=== PATIENT | male | born 1940 | race Caucasian/White ===

== ENCOUNTER 2021-11-25 13:38 | Inpatient (IN) | payer OTHER ==
[2021-11-25 14:15] LABS: Absolute Lymphocytes (CBC) 1.3 K/uL (0.7-4.9); Hematocrit 40.9 % (39.6-49.0); Lymphocytes % 22.8 % (15.3-44.8); MPV 9.2 fL (7.6-11.3); RBC Red Blood Cell Count 4.51 M/uL (4.33-5.43)
--- NOTE | 2021-11-25 14:52 | EDPHYS ---
Physician Documentation [facility] Name: Augustine Shin Age: 81 yrs Sex: Male : 1940 Arrival Date: 11/25/2021 Time: 13:41 Bed 5 Private MD: ED Physician Lan Ballard HPI: 11/25 14:48 This 81 yrs old Male presents to ER via EMS with complaints of Chest Pain. rn 14:48 The patient or guardian reports chest pain that is located primarily in the substernal rn area. Onset: yesterday. The pain does not radiate. Associated signs and symptoms: Pertinent positives: diaphoresis, shortness of breath, Pertinent negatives: cough, nausea, syncope, vomiting. The chest pain is described as a heaviness. Duration: The patient or guardian reports multiple episodes, that are intermittent. Modifying factors: The symptoms are alleviated by nothing. the symptoms are aggravated by nothing. Severity of pain: At its worst the pain was moderate in the emergency department the pain has resolved. The patient has not experienced similar symptoms in the past. The patient has been recently seen by a physician:. Sent from clinic for chest pain, started yesterday, no trauma, no fever, no cough. Reports assoc with diaphoresis and sob, lasted only minutes, currently no pain or sob.. 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 Adult Immunizations up to date. - Social history:: Smoking status: Patient/guardian denies using tobacco, the patient reports quitting approximately 42 years ago. - Family history:: not pertinent. ROS: 14:48 Constitutional: Negative for fever, chills, and weight loss, Eyes: Negative for injury, rn pain, redness, and discharge, Neck: Negative for injury, pain, and swelling, Cardiovascular: Negative for palpitations, and edema, Respiratory: Negative for cough, wheezing, and pleuritic chest pain, Abdomen/GI: Negative for abdominal pain, nausea, vomiting, diarrhea, and constipation, Back: Negative for injury and pain, MS/Extremity: Negative for injury and deformity, Skin: Negative for injury, rash, and discoloration, Neuro: Negative for headache, weakness, numbness, tingling, and seizure. Exam: 14:48 Constitutional: This is a well developed, well nourished patient who is awake, alert, rn and in no acute distress. Head/Face: Normocephalic, atraumatic. Eyes: Periorbital areas with no swelling, redness, or edema. Cardiovascular: Regular rate and rhythm. No pulse deficits. Respiratory: No increased work of breathing, no retractions or nasal flaring. Abdomen/GI: Soft, non-tender Skin: Warm, dry MS/ Extremity: Pulses equal, no cyanosis. Neuro: Awake and alert, GCS 15 Vital Signs: 13:25 BP 195 / 89; Pulse 72; Resp 16 S; Temp 98.6(O); Pulse Ox 98% on R/A; Weight 67.4 kg; jg9 Height 5 ft. 9 in. (175.26 cm) (R); Pain 0/10; 13:30 BP 195 / 89; Pulse 54; Resp 19 S; Pulse Ox 98% on R/A; jg9 14:30 BP 198 / 85; Pulse 51; Resp 14 S; Pulse Ox 100% on R/A; jg9 15:00 BP 174 / 72; Pulse 58; Resp 18 S; Pulse Ox 98% on R/A; jg9 15:30 BP 172 / 84; Pulse 58; Resp 17; Pulse Ox 99% on R/A; jg9 18:00 BP 184 / 85; Pulse 55; Resp 14; Pulse Ox 98% on R/A; Pain 0/10; jg9 13:25 Body Mass Index 21.94 (67.40 kg, 175.26 cm) 9 MDM: 13:52 Patient medically screened. rn 14:51 Differential diagnosis: acute myocardial infarction, acute pericarditis, coronary rn artery disease costochondritis, esophagitis, gastritis, gastroesophageal reflux disease (GERD), pneumothorax. Data reviewed: vital signs, nurses notes, lab test result(s), EKG, and as a result, I will admit patient. Counseling: I had a detailed discussion with the patient and/or guardian regarding: the historical points, exam findings, and any diagnostic results supporting the discharge/admit diagnosis, lab results, radiology results, the need for further work-up and treatment in the hospital. Medical screen evaluation completed. [facility]. Admission orders: after a detailed discussion of the patient's condition and case, the admit orders are written by me. 11/25 14:01 Order name: Basic Metabolic Panel; Complete Time: 16: rn 11/25 14:01 Order name: CBC with Diff; Complete Time: 15: rn 11/25 14:01 Order name: NT PRO-BNP; Complete Time: 16: rn 11/25 14:01 Order name: Troponin HS; Complete Time: 16: rn 11/25 14:01 Order name: XRAY Chest (1 view); Complete Time: 15:11/25 14:15 Order name: COVID-19 SARS RT PCR (Document "Date of Onset" if Symptomatic); Complete bd Time: 15:11/25 14:01 Order name: EKG; Complete Time: 14:02 11/25 14:01 Order name: Cardiac monitoring; Complete Time: 15: rn 11/25 14:01 Order name: EKG - Nurse/Tech; Complete Time: 15: rn 11/25 14:01 Order name: IV Saline Lock; Complete Time: 15: rn 11/25 14:01 Order name: Labs collected and sent; Complete Time: 15: rn 11/25 14:01 Order name: O2 Per Protocol; Complete Time: 15: rn 11/25 14:01 Order name: O2 Sat Monitoring; Complete Time: 15: rn 11/25 14:19 Order name: Labs - recollect needed: recollect green top; Complete Time: 15:32 bd Administered Medications: 15:37 Drug: Aspirin 325 mg Route: PO; ap3 15:39 Follow up: Response: No adverse reaction jg9 Disposition Summary: 11/25/21 14:51 Hospitalization Ordered Hospitalization Status: Observation rn Provider: Darrin Key rn Location: Telemetry/MedSurg (observation) rn Condition: Stable rn Problem: new rn Symptoms: have improved rn Bed/Room Type: Standard rn Room Assignment: 224(11/25/21 17:54) tyron Diagnosis - Chest pain, unspecified rn Forms: - Medication Reconciliation Form rn - SBAR form rn Signatures: Dispatcher [employer] Kaitlin Cruz Diana, RN RN Lan Sanches MD MD rn Prokisch, Amanda RN RN ap3 Carmita Ventura RN RN jg9 Corrections: (The following items were deleted from the chart) 17:54 14:51 andre ackerman
--- NOTE | 2021-11-25 14:52 | ER ---
Nurse's Notes [facility] Name: Augustine Shin Age: 81 yrs Sex: Male : 1940 Arrival Date: 11/25/2021 Time: 13:41 Bed 5 Private MD: Diagnosis: Chest pain, unspecified Presentation: 11/25 13:25 Chief complaint: EMS states: [facility]/o intermittent c/p since jg9 yesterday, currently pain free but has been having mid-sternal pain radiating to the epigastric area, Hx of AAA repair in 2020. Patient awake, alert, oriented and in no obvious distress. Coronavirus screen: Vaccine status: Patient reports receiving the 2nd dose of the covid vaccine. [place] 08/24/21 and 09/22/21. Ebola Screen: Patient negative for fever greater than or equal to 101.5 degrees Fahrenheit, and additional compatible Ebola Virus Disease symptoms Patient denies exposure to infectious person. Patient denies travel to an Ebola-affected area in the 21 days before illness onset. Initial Sepsis Screen: Does the patient meet any 2 criteria? No. Patient's initial sepsis screen is negative. Does the patient have a suspected source of infection? No. Patient's initial sepsis screen is negative. Initial Sepsis Screen: Does the patient meet any 2 criteria?. Risk Assessment: Do you want to hurt yourself or someone else? Patient reports no desire to harm self or others. Onset of symptoms was November 24, 2021. 13:25 Method Of Arrival: EMS: [facility] 13:25 Acuity: TYLER 3 jg9 Triage Assessment: 13:25 General: Appears in no apparent distress. Behavior is calm. Pain: Denies pain. jg9 Cardiovascular: Rhythm is sinus rhythm. 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 Adult Immunizations up to date. - Social history:: Smoking status: Patient/guardian denies using tobacco, the patient reports quitting approximately 42 years ago. - Family history:: not pertinent. Screenin:49 Abuse screen: Denies threats or abuse. Nutritional screening: No deficits noted. ap3 Tuberculosis screening: No symptoms or risk factors identified. 13:53 Fall Risk None identified. jg9 Assessment: 13:00 Pain: Pain began 1 day ago. jg9 13:00 Pain: Pain does not radiate. jg9 15:38 Reassessment: No changes from previously documented assessment. Patient is alert, jg9 oriented x 3, equal unlabored respirations, skin warm/dry/pink. Pain: Denies pain. Vital Signs: 13:25 BP 195 / 89; Pulse 72; Resp 16 S; Temp 98.6(O); Pulse Ox 98% on R/A; Weight 67.4 kg; jg9 Height 5 ft. 9 in. (175.26 cm) (R); Pain 0/10; 13:30 BP 195 / 89; Pulse 54; Resp 19 S; Pulse Ox 98% on R/A; jg9 14:30 BP 198 / 85; Pulse 51; Resp 14 S; Pulse Ox 100% on R/A; jg9 15:00 BP 174 / 72; Pulse 58; Resp 18 S; Pulse Ox 98% on R/A; jg9 15:30 BP 172 / 84; Pulse 58; Resp 17; Pulse Ox 99% on R/A; jg9 18:00 BP 184 / 85; Pulse 55; Resp 14; Pulse Ox 98% on R/A; Pain 0/10; jg9 13:25 Body Mass Index 21.94 (67.40 kg, 175.26 cm) jg9 ED Course: 13:41 Patient arrived in ED. jg9 13:42 Carmita Ventura, RN is Primary Nurse. jg9 13:46 Triage completed. jg9 13:49 Arm band placed on right wrist. EKG completed in triage. Results shown to MD. ap3 13:49 Patient has correct armband on for positive identification. Bed in low position. Call ap3 light in reach. Side rails up X 1. tankage grinder on. Pulse ox on. NIBP on. Door closed. Noise minimized. 13:49 Patient maintains SpO2 saturation greater than 95% on room air. ap3 13:52 Lan Ballard MD is Attending Physician. rn 14:50 XRAY Chest (1 view) In Process Unspecified. EDMS 14:51 Darrin Key is Hospitalizing Provider. rn 15:39 No apparent distress. Resting quietly. jg9 18:18 No provider procedures requiring assistance completed. jg9 18:19 Patient admitted, IV remains in place. jg9 Administered Medications: 15:37 Drug: Aspirin 325 mg Route: PO; ap3 15:39 Follow up: Response: No adverse reaction jg9 Outcome: 14:51 Decision to Hospitalize by Provider. rn 18:19 Condition: stable jg9 18:19 Admitted to Med/surg accompanied by nurse, via stretcher, via wheelchair, room 224, jg9 Report called to Tigist Anne RN 18:20 Patient left the ED. jg9 Signatures: Dispatcher [employer] EDIA Lan Ballard MD MD rn Prokisch, Amanda, RN RN ap3 Carmita Ventura RN RN jg9 Corrections: (The following items were deleted from the chart) 13:52 13:25 Cardiovascular: Rhythm is sinus bradycardia jg9 jg9
--- NOTE | 2021-11-25 14:57 | RAD REPORT ---
EXAM DESCRIPTION: RAD - Chest Single View - 11/25/2021 2:48 pm CLINICAL HISTORY: CHEST PAIN TECHNIQUE: AP portable chest image was obtained 11/25/2021 2:48 pm . FINDINGS: Lungs are clear. Heart and vasculature are normal. No measurable pleural effusion and no p neumothorax. No acute bony abnormality seen. No acute aortic findings suspected. IMPRESSION: No acute cardiopulmonary process.
[2021-11-25] MEDS ORDERED: ASPIRIN 325 MG TAB ONE (15:38)
[2021-11-25 16:13] LABS: Potassium 3.5 mmol/L (3.5-5.1); Troponin High Sensitivity 9.8 pg/mL (<58.9)
--- NOTE | 2021-11-25 16:47 | P.HP ---
Certification for Inpatient Patient admitted to: Observation With expected LOS: <2 Midnights Practitioner: I am a practitioner with admitting privileges, knowledge of patient current condition, hospital course, and medical plan of care. Services: Services provided to patient in accordance with Admission requirements found in Title 42 Section 412.3 of the Code of Federal Regulations Patient History Date of Service: 11/25/21 Reason for admission: Chest pain History of Present Illness: 81-year-old gentleman with a history of diabetes mellitus type 2, history of peripheral vascular disease, aortic aneurysm/dissection status post resection and grafting presented to the emergency department with a complaint of chest pain of onset last night, intermittent in nature, located in anterior chest, each episode lasting briefly, associated with diaphoresis, no nausea, moderate intensity. Initial work-up in the ED with troponin is negative. EKG demonstrates a sinus bradycardia, no significant ischemic changes. Checks x-ray shows no acute disease. Patient with significant CAD risk factors including PVD. He is hospitalized for chest pain rule out. - Past Medical/Surgical History -: Hypertension -: DM type II -: Peripheral vascular disease -: Aortic aneurysm status post repair -: Aortic aneurysm/dissection repair - Family History Mother -: Diabetes - Social History Smoking Status: Former smoker Alcohol use: No CD- Drugs: No Place of Residence: Home Review of Systems Other: Patient denied any cough, denied any abdominal pain, no nausea or vomiting. Except as documented, all other systems reviewed and negative. Physical Examination - Physical Exam General: Alert, In no apparent distress, Oriented x3 HEENT: PERRLA, Mucous membr. moist/pink, EOMI, Sclerae nonicteric Neck: Supple, JVD not distended Respiratory: Clear to auscultation bilaterally, Normal air movement Cardiovascular: No edema, Regular rate/rhythm, Normal S1 S2, No murmurs Capillary refill: <2 Seconds Gastrointestinal: Normal bowel sounds, Soft and benign, Non-distended, No tenderness Musculoskeletal: No swelling, No tenderness Integumentary: No rashes, No erythema, No cyanosis Neurological: Normal speech, Normal strength at 5/5 x4 extr, Cranial nerves 3-12 intact Lymphatics: No axilla or inguinal lymphadenopathy - Studies Laboratory Data (last 24 hrs) 11/25/21 15:32: Sodium 144, Potassium 3.5, BUN 21 H, Creatinine 0.93, Glucose 98 11/25/21 14:00: WBC 5.60, Hgb 13.7, Hct 40.9, Plt Count 205 Assessment and Plan - Problems (Diagnosis) (1) Chest pain Current Visit: Yes Status: Acute (2) Hypertension Current Visit: Yes Status: Acute (3) Peripheral vascular disease Current Visit: Yes Status: Acute (4) DM type 2 (diabetes mellitus, type 2) Current Visit: Yes Status: Acute (5) Sinus bradycardia Current Visit: Yes Status: Acute - Plan Patient with significant CAD risk factors presenting with chest pain. Place patient under observation. Initial troponin is negative. Continue to trend troponin x3. Obtain echocardiogram. Cardiology consult Stress test if troponin trend negative. Aspirin and Plavix Patient with sinus bradycardia. He would not tolerate beta-edenilson. Continue home antihypertensives. - Advance Directives Does patient have a Living Will: No Does patient have a Durable POA for Healthcare: No
[2021-11-25 18:33] VITALS: BMI 21.3
[2021-11-25] MEDS ORDERED: MORPHINE 2 MG/ML SYR IV PRN (18:50)
[2021-11-25] MEDS ORDERED: NITROGLYCERIN 0.4 MG/TAB SL PRN (18:50)
[2021-11-25] MEDS ORDERED: ACETAMINOPHEN 500 MG TAB PO PRN (18:50)
[2021-11-25 20:32] LABS: Troponin High Sensitivity 13.1 pg/mL (<58.9)
[2021-11-25] MEDS: INSULIN -REGULAR HUMAN 50 UNIT/0.5 ML ML SQ SCH (22:25)
[2021-11-25] MEDS: METFORMIN HCL 500 MG TAB PO SCH (22:54)
[2021-11-25] MEDS: ATORVASTATIN 80 MG TAB PO SCH (22:54)
[2021-11-25] MEDS: GABAPENTIN 400 MG CAP PO SCH (22:54)
[2021-11-26 05:45] LABS: Absolute Lymphocytes (CBC) 1.1 K/uL (0.7-4.9); Hematocrit 39.5 % (39.6-49.0); Lymphocytes % 20.6 % (15.3-44.8); MPV 8.6 fL (7.6-11.3); RBC Red Blood Cell Count 4.34 M/uL (4.33-5.43)
[2021-11-26 06:00] LABS: Potassium 4.1 mmol/L (3.5-5.1)
[2021-11-26] MEDS: INSULIN -REGULAR HUMAN 50 UNIT/0.5 ML ML SQ SCH ×4 (07:30→21:06)
--- NOTE | 2021-11-26 07:45 | EKG ---
Test Date: 2021-11-25 Test Time: 13:27:18 Production Line Technician: ALP MEASUREMENT RESULTS: Intervals: Rate: 48 CT: 166 QRSD: 84 QT: 404 QTc: 360 Upson: P: 66 CT: 166 QRS: 64 T: 77 INTERPRETIVE STATEMENTS: Sinus bradycardia Septal infarct, age undetermined Abnormal ECG No previous ECG available for comparison Electronically Signed On 11-26-21 07:41:34 CDT by Jag Alonzo
[2021-11-26] MEDS: ASCORBIC ACID 100 MG PO SCH (09:00)
[2021-11-26] MEDS: CLOPIDOGREL 75 MG TABLET PO SCH (09:19)
[2021-11-26] MEDS: LOSARTAN POTASSIUM 50 MG TABLET PO SCH (09:19)
[2021-11-26] MEDS: METFORMIN HCL 500 MG TAB PO SCH (09:19)
[2021-11-26] MEDS: ASPIRIN EC 81 MG TAB PO SCH (09:20)
[2021-11-26] MEDS: PANTOPRAZOLE 40MG TABLET PO SCH (09:20)
[2021-11-26] MEDS: ENOXAPARIN 40 MG/0.4 ML SQ SCH (09:20)
[2021-11-26] MEDS: GABAPENTIN 400 MG CAP PO SCH ×3 (09:20→21:07)
--- NOTE | 2021-11-26 10:31 | CON ---
Date of Consultation: 11/26/2021 Reason For Consultation: Chest pain. History Of Present Illness: Mr. Shin is an 81-year-old male, has had a history of abdominal aortic aneurysm, status post repair at the [facility]. He has had a history of peripheral arterial disease , hypertension, diabetes, and dyslipidemia. Has had negative workups in the past, but he does not re member when. He does not have a regular physician, primary care, or cardiology. He comes in with mancuso bsternal chest pain, diffuse, anterior, worse with breathing. No nausea, vomiting, diaphoresis, PND, orthopnea, pedal edema, palpitations, syncope. Normal troponin, normal BNP, normal EKG, normal x-ra y. Glucose of 215, creatinine 1.34. He is symptom free now. Echocardiogram is pending. Past Medical History: As stated above. Allergies: HE IS ALLERGIC TO ADHESIVES, SULFA, IODINE, AND BACITRACIN. Review of Systems: Negative. Social History: Negative. Family History: Noncontributory. Medications: Include aspirin, Lipitor, Neurontin, insulin, losartan, metformin, omeprazole, and a nc dicine called alogliptin. Physical Examination: Vital Signs: Stable, afebrile. General: No acute distress. HEENT: Negative. Neck: Supple. No bruit. Chest: Clear. Cardiac: Revealed a regular rhythm and rate. No murmurs, gallops, or rubs. Abdomen: Benign. Extremities: Revealed no clubbing, cyanosis, or edema. Diagnostic Data: As stated earlier. Impression And Plan: This is a patient with many risk factors for heart disease including peripheral arterial disease, abdominal aortic aneurysm, hypertension, diabetes, and dyslipidemia. He ruled out for a myocardial infarction. EKG, troponin, and x-rays are unremarkable. Echocardiogram is pending . I think he needs to have the Lexiscan before he goes home. I will discuss the case further with Ruth Ann Key. His blood pressure and dyslipidemia are well controlled. His diabetes is poorly controll ed. His peripheral arterial disease and abdominal aortic aneurysm are stable. He needs to have thes e followed up in the near future as well. NB/MODL Voice ID: [id number] Report ID: [id number]
--- NOTE | 2021-11-26 14:01 | P.PN ---
Subjective Date of Service: 11/26/21 Chief Complaint: Chest pain Patient has no new complaint. He denies any chest pain today. Physical Examination - Vital Signs Temperature: 97.7 F Blood Pressure: 179/73 Pulse: 57 Respirations: 20 Pulse Ox (%): 97 - Physical Exam General: Alert, In no apparent distress, Other (Frail-appearing) HEENT: Mucous membr. moist/pink Neck: Supple, JVD not distended Respiratory: Clear to auscultation bilaterally, Normal air movement Cardiovascular: No edema, Regular rate/rhythm, Normal S1 S2, No murmurs Gastrointestinal: Normal bowel sounds, Soft and benign, Non-distended, No tenderness Musculoskeletal: No swelling, No tenderness Integumentary: No rashes, No cyanosis Neurological: Normal strength at 5/5 x4 extr - Studies Laboratory Data (last 24 hrs) 11/26/21 05:24: Sodium 142, Potassium 4.1, BUN 27 H, Creatinine 1.34 H, Glucose 123 H 11/26/21 05:24: WBC 5.10, Hgb 13.3 L, Hct 39.5 L, Plt Count 178 11/25/21 19:07: Triglycerides 67, Cholesterol 163, HDL Cholesterol 46, Cholesterol/HDL Ratio 3.54 11/25/21 15:32: Sodium 144, Potassium 3.5, BUN 21 H, Creatinine 0.93, Glucose 98 11/25/21 14:00: WBC 5.60, Hgb 13.7, Hct 40.9, Plt Count 205 Assessment And Plan - Current Problems (Diagnosis) (1) Chest pain Current Visit: Yes Status: Acute (2) Hypertension Current Visit: Yes Status: Acute (3) Peripheral vascular disease Current Visit: Yes Status: Acute (4) DM type 2 (diabetes mellitus, type 2) Current Visit: Yes Status: Acute (5) Sinus bradycardia Current Visit: Yes Status: Acute - Plan Patient with significant CAD risk factors presenting with chest pain. Troponin trended negative. Echocardiogram result is pending Cardiology input appreciated. Dr. Tracy recommend nuclear stress test Nuclear stress test ordered for tomorrow Continue aspirin and Plavix. Start Lipitor. Patient with sinus bradycardia. He would not tolerate beta-edenilson. Continue home antihypertensives. Insulin sliding scale for glucose management. Hold Metformin.
[2021-11-26] MEDS: ATORVASTATIN 80 MG TAB PO SCH (21:06)
[2021-11-27] MEDS ORDERED: REGADENOSON 0.4 MG/5 ML SYR IV ONE (07:12)
[2021-11-27] MEDS: INSULIN -REGULAR HUMAN 50 UNIT/0.5 ML ML SQ SCH ×2 (07:30→12:44)
--- NOTE | 2021-11-27 07:34 | ECHO ---
HEIGHT: 5 ft 9 in WEIGHT: 144 lb 8 oz DATE OF STUDY: 11/26/[address]: kelly nesbitt 2-DIMENSIONAL: YES M.MODE: YES DOPPLER: YES COLOR FLOW: YES TDS: NO PORTABLE: NO DEFINITY: NO BUBBLE STUDY: NO DIAGNOSIS: CHEST PAIN CARDIAC HISTORY: CATHERIZATION: NO SURGERY: NO PROSTHETIC VALVE: NO PACEMAKER: NO MEASUREMENTS (cm) DIASTOLIC (NORMALS) SYSTOLIC (NORMALS) IVSd 0.9 (0.6-1.2) LA Diam 2.2 (1.9-4.0) LVEF 68% LVIDd 3.0 (3.5-5.7) LVIDs 1.9 (2.0-3.5) %FS 37% LVPWd 1.0 (0.6-1.2) Ao Diam 2.1 (2.0-3.7) 2 DIMENSIONAL ASSESSMENT: RIGHT ATRIUM: NORMAL LEFT ATRIUM: NORMAL RIGHT VENTRICLE: NORMAL LEFT VENTRICLE: NORMAL TRICUSPID VALVE: NORMAL MITRAL VALVE: PULMONIC VALVE: NORMAL AORTIC VALVE: NORMAL PERICARDIAL EFFUSION: NONE AORTIC ROOT: NORMAL LEFT VENTRICULAR WALL MOTION: NORMAL DOPPLER/COLOR FLOW: MILD MITRAL REGURGITATION. COMMENTS: NORMAL LEFT VENTRICULAR EJECTION FRACTION 60-65%. NORMAL WALL MOTION. MILD MITRAL REGURGITATION. MILD DIASTOLIC DYSFUNCTION. TECHNOLOGIST: Bridget GARNER
[2021-11-27] MEDS: ASCORBIC ACID 100 MG PO SCH (09:00)
--- NOTE | 2021-11-27 10:00 | RAD REPORT ---
EXAM DESCRIPTION: NM - Rest Stress Cardiac Imaging - 11/27/2021 9:45 am CLINICAL HISTORY: Chest pain. COMPARISON: None. TECHNIQUE: The patient was administered 10.5 mCi of Tc 99m Sestamibi prior to resting SPECT imaging of the heart. The patient was then administered 31.6 mCi of Tc 99m Sestamibi following exercise or ph armacologic stress. Multiplanar SPECT images were reviewed. FINDINGS: A moderate area of diminished radiotracer activity involves the inferior left ventricular myocardium on rest and stress sequences. The left ventricular ejection fraction equals 71% IMPRESSION: Moderate apparent fixed perfusion defect involving the inferior left ventricular myocard ium could either be secondary to attenuation from the diaphragm or an infarction. There is no evidence of stress-induced ischemia
[2021-11-27] MEDS: LOSARTAN POTASSIUM 50 MG TABLET PO SCH (10:41)
[2021-11-27] MEDS: ASPIRIN EC 81 MG TAB PO SCH (10:42)
[2021-11-27] MEDS: GABAPENTIN 400 MG CAP PO SCH ×2 (10:42→13:58)
[2021-11-27] MEDS: ENOXAPARIN 40 MG/0.4 ML SQ SCH (10:43)
[2021-11-27] MEDS: CLOPIDOGREL 75 MG TABLET PO SCH (10:43)
[2021-11-27] MEDS: PANTOPRAZOLE 40MG TABLET PO SCH (10:43)
[2021-11-27 10:49] VITALS: BP 175/81; TEMP 97
--- NOTE | 2021-11-27 11:35 | TREADPHA ---
DX: CHEST PAIN Date of Study: 11/27/2021 Ht: 5' 9 " Wt: 144 lb 8 oz Consulting Physician: TIMMY MEDICATIONS: ASPIRIN, LIPITOR, PLAVIX, LOVENOX, NEURONTIN, NOVOLIN-R, COZAAR HISTORY: 81 YEAR OLD MALE WITH COMPLAINTS OF CHEST TIGHTNESS AND HYPERTENSION. HISTORY OF DIABETES MELLITUS, HYPERTENSION, HIGH CHOLESTEROL AND PROSTATE CANCER. PHYSICIAL EXAMINATION: RESTING B.P.: 155/83 RESTING H.R.: 56 RESTING EKG: NORMAL SINUS RHYTHM, WITHIN NORMAL LIMITS. PROTOCOL: LEXISCAN EXERCISE TIME: 3:30 B.P. AT PEAK STRESS: 144/51 IMPRESSION: LEXISCAN INJECTED. CARDIOLITE INJECTED PER PROTOCOL. SEE NUCLEAR MEDICINE REPORT. NO CHEST PAIN. NO VENTRICULAR OR SUPRAVENTRICULAR TACHYCARDIA NOTED. OCCASIONAL PREMATURE VENTRICULAR COMPLEXES NOTED. PATIENT COMPLAINTS OF STOMACH PAIN AND BRIEF CHEST TIGHTNESS. NO EKG CHANGES WITH LEXISCAN.
[2021-11-27 12:02] VITALS: O2SAT 98
--- NOTE | 2021-11-27 13:04 | P.DS ---
Admission Date: 11/26/21 Discharge Date: 11/27/21 Disposition: ROUTINE DISCHARGE Discharge Condition: FAIR Reason for Admission: Chest pain - Problems (1) Chest pain Current Visit: Yes Status: Acute (2) Hypertension Current Visit: Yes Status: Acute (3) Peripheral vascular disease Current Visit: Yes Status: Acute (4) DM type 2 (diabetes mellitus, type 2) Current Visit: Yes Status: Acute (5) Sinus bradycardia Current Visit: Yes Status: Acute Brief History of Present Illness: 81-year-old gentleman with a history of diabetes mellitus type 2, history of peripheral vascular disease, aortic aneurysm/dissection status post resection and grafting presented to the emergency department with a complaint of chest pain of onset last night, intermittent in nature, located in anterior chest, each episode lasting briefly, associated with diaphoresis, no nausea, moderate intensity. Initial work-up in the ED with troponin is negative. EKG demonstrates a sinus bradycardia, no significant ischemic changes. Checks x-ray shows no acute disease. Patient with significant CAD risk factors including PVD. He is hospitalized for chest pain rule out. Hospital Course: Patient placed on observation on the medical floor. Troponin trended negative. Patient seen and evaluated by cardiology recommended nuclear stress test. Nuclear stress test showed no stress-induced ischemia. ACS has been ruled out, patient has been asymptomatic and deemed stable for discharge. He is discharged to continue aspirin and Lipitor. His blood pressure was elevated during the hospital stay. Patient is already on losartan 100 mg daily. Added Norvasc 5 mg daily for better blood pressure control. Vital Signs/Physical Exam: Temp Pulse Resp BP Pulse Ox 97.0 F 59 18 175/81 H 96 11/27/21 08:00 11/27/21 08:00 11/27/21 08:00 11/27/21 08:00 11/27/21 08:00 General: Alert, In no apparent distress, Oriented x3 HEENT: Mucous membr. moist/pink Neck: JVD not distended Respiratory: Clear to auscultation bilaterally, Normal air movement Cardiovascular: No edema, Regular rate/rhythm, Normal S1 S2 Gastrointestinal: Soft and benign, Non-distended, No tenderness Musculoskeletal: No swelling Integumentary: No rashes Neurological: Normal strength at 5/5 x4 extr Laboratory Data at Discharge: WBC 5.10 K/uL (4.3-10.9) 11/26/21 05:24 Hgb 13.3 g/dL (13.6-17.9) L 11/26/21 05:24 Hct 39.5 % (39.6-49.0) L 11/26/21 05:24 Plt Count 178 K/uL (152-406) 11/26/21 05:24 Sodium 142 mmol/L (136-145) 11/26/21 05:24 Potassium 4.1 mmol/L (3.5-5.1) 11/26/21 05:24 BUN 27 mg/dL (7-18) H 11/26/21 05:24 Creatinine 1.34 mg/dL (0.55-1.3) H 11/26/21 05:24 Glucose 123 mg/dL (74-106) H 11/26/21 05:24 Triglycerides 67 mg/dL (<150) 11/25/21 19:07 Cholesterol 163 mg/dL (<200) 11/25/21 19:07 HDL Cholesterol 46 mg/dL (40-60) 11/25/21 19:07 Cholesterol/HDL Ratio 3.54 11/25/21 19:07 Home Medications: Alogliptin Benzoate [Alogliptin] 6.25 mg PO DAILY 11/25/21 Ascorbic Acid [Vitamin C] 100 mg PO DAILY 11/25/21 Aspirin [Aspirin EC] 81 mg PO BEDTIME 11/25/21 Atorvastatin Calcium [Lipitor] 80 mg PO BEDTIME 11/25/21 Gabapentin 400 mg PO TID 11/25/21 Insulin NPH Human Isophane [Novolin N] 13 units SQ BEDTIME 11/25/21 Losartan Potassium 100 mg PO DAILY 11/25/21 Metformin HCl 1,000 mg PO BID 11/25/21 Omeprazole 20 mg PO DAILY 11/25/21 Amlodipine [Norvasc*] 5 mg PO DAILY #30 tab 11/27/21 New Medications: Amlodipine [Norvasc*] 5 mg PO DAILY #30 tab Physician Discharge Instructions: Follow up with [facility] Diet: ADA Activity: Ad betty Followup: KACY WOODRUFF [Primary Care Provider] - 1-2 Weeks
== END 2021-11-27 14:45 | disposition home or self-care (01) | DRG 313 ==
LOC: ER 13:38 → ERHOLD 16:33 → 2ND 18:21 → OBSVTOIN 11-26 12:26
PROVIDERS: ADMIT Internal Medicine; ATTEND Internal Medicine
DX: R07.9 Chest pain, unspecified (principal); I10 Essential (primary) hypertension; I73.9 Peripheral vascular disease, unspecified; E11.9 Type 2 diabetes mellitus without complications; R00.1 Bradycardia, unspecified; E78.5 Hyperlipidemia, unspecified; Z87.891 Personal history of nicotine dependence; Z98.890 Other specified postprocedural states; Z88.2 Allergy status to sulfonamides; Z91.041 Radiographic dye allergy status; Z79.4 Long term (current) use of insulin; Z20.822 Contact with and (suspected) exposure to COVID-19
CPT/HCPCS: 36415; 71045; 78452; 80048; 80061; 82947; 83880; 84484; 85025; 93005; 93017; 93306; 94760; 99285; A9500; G0378; J1650; J2785; U0003